=== PATIENT | female | born 1945 | race Caucasian/White ===

== ENCOUNTER 2023-02-22 11:16 | Outpatient (CLI) | payer MEDICARE, SELFPAY ==
[2023-02-22 11:41] LABS: Basophils Absolute Auto 0.1 K/mm3 (0.0-0.1); Basophils Percent Auto 0.5 % (0.2-1.2); Eosinophils Absolute Auto 0.2 K/mm3 (0-0.3); Eosinophils Percent Auto 2.1 % (0-4.4); Hematocrit 36.1 % (37.0-47.0); Hemoglobin 11.9 g/dL (12.0-15.0); Immature Granulocyte Absolute 0.03 K/mm3 (0.00-0.031); Immature Granulocyte Percent A 0.3 % (0-0.5); Lymphocytes Absolute Auto 1.52 K/mm3 (0.9-3.2); Lymphocytes Percent Auto 15.3 % (18.3-44.2); Mean Corpuscular Hemoglobin 31.3 pg (26-34); Mean Platelet Volume 9.8 fl (7.4-10.4); Monocytes Absolute Auto 0.6 K/mm3 (0.1-0.6); Monocytes Percent Auto 5.8 % (2.6-8.5); Neutrophils Absolute Auto 7.6 K/mm3 (1.3-6.7); Platelet Count Result 376 k/mm3 (150-375); Red Cell Distribution Width 13.1 % (11.5-14.5)
[2023-02-22 11:55] LABS: Alanine Aminotransferase 16 U/L (6-35); Albumin Level 4.1 g/dL (3.5-5.1); Alkaline Phosphatase 96 U/L (38-126); Anion Gap 8 mmol/L (8-16); Aspartate Amino Transferase 29 U/L (14-36); Bilirubin,Total 0.7 mg/dL (0.2-1.3); Blood Urea Nitrogen 15 mg/dL (7-17); Calcium 9.1 mg/dL (8.4-10.2); Carbon Dioxide 31 mmol/L (22-30); Chloride 105 mmol/L (98-107); Estimated Glomerular Filt Rate > 60; Glucose 106 mg/dL (65-110); Potassium 3.9 mmol/L (3.4-5.0); Sodium 144 mmol/L (137-145)
== END 2023-02-22 11:17 | disposition home or self-care (01) ==
LOC: ANHLAB 11:17
PROVIDERS: PCP Family Medicine; Visit Provider Nurse Practitioner Family
DX: N93.9 Abnormal uterine and vaginal bleeding, unspecified (principal)
CPT/HCPCS: 36415; 80053; 85025

== ENCOUNTER 2023-02-26 11:35 | Outpatient (CLI) | payer MEDICARE, SELFPAY ==
[2023-02-26 11:58] LABS: Hematocrit 36.9 % (37.0-47.0); Hemoglobin 11.6 g/dL (12.0-15.0); Mean Corpuscular HGB Conc 31.4 g/dl (32-36); Mean Corpuscular Hemoglobin 30.8 pg (26-34); Mean Corpuscular Volume 97.9 fl (80-100); Mean Platelet Volume 9.8 fl (7.4-10.4); Platelet Count Result 358 k/mm3 (150-375); Red Blood Count 3.77 M/mm3 (4.2-5.4); Red Cell Distribution Width 13.2 % (11.5-14.5); White Blood Count 7.6 K/mm3 (4.5-10.0)
[2023-02-26 13:06] LABS: Iron 52 ug/dL (37-170)
[2023-02-26 13:16] LABS: Percent Iron Saturation 17 % (20-50)
[2023-02-26 13:21] LABS: Folic Acid 4.3 ng/mL (2.76->20)
== END 2023-02-26 11:36 | disposition home or self-care (01) ==
LOC: ANHLAB 11:36
PROVIDERS: PCP Family Medicine; Visit Provider Nurse Practitioner Family
DX: N93.9 Abnormal uterine and vaginal bleeding, unspecified (principal); D64.9 Anemia, unspecified
CPT/HCPCS: 36415; 82607; 82746; 83540; 83550; 85027

== ENCOUNTER 2023-04-29 11:09 | Outpatient (CLI) | payer MEDICARE, SELFPAY ==
[2023-04-29 11:25] LABS: Hematocrit 39.3 % (37.0-47.0); Hemoglobin 12.9 g/dL (12.0-15.0)
== END 2023-04-29 11:10 | disposition home or self-care (01) ==
PROVIDERS: Student in an Organized Health Care Education/Training Program; PCP Family Medicine; Visit Provider Internal Medicine Hematology & Oncology
DX: N95.0 Postmenopausal bleeding (principal); Z01.818 Encounter for other preprocedural examination
CPT/HCPCS: 36415; 85014; 85018

== ENCOUNTER 2023-05-02 00:22 | Day surgery (SDC) | payer MEDICARE, SELFPAY ==
[2023-04-22 15:40] VITALS: BMI 25.9
--- NOTE | 2023-04-22 16:04 | PC.NURSE ---
Report to the Outpatient Waiting Room, entrance under the green pavilion located off [facility], at time ___12:00PM____ on date __05/02/23 . Planned Procedure Time: __2:00PM . Time changes happen often and if your time is changed the preop area will call you the afternoon before. - You and your visitor will be asked to self-screen and do not enter if you have any COVID symptoms. - A mask is optional within the hospital at this time. Patients may have clear liquids (water, carbonated beverages, clear teas, apple juice) until 3 hours prior to surgery with a maximum of 20 ounces. - No food from midnight until time of surgery. Take the following medications with a SIP of water the morning of surgery: TYLENOL NEEDED FOR PAIN DO NOT STOP ANY OF YOUR OTHER PRESCRIPTION MEDICATIONS PRIOR TO SURGERY ?EXCEPT THE FOLLOWING Medications to discontinue per physician ____HOLD ALL VITAMINS/SUPPLEMENTS 3 DAYS PRE0OP PER ANESTHESIA Date to take last dose 04/28/23 Please no make-up, nail taiwanese, hairspray, perfume, deodorant, or body powder the day of surgery. No jewelry (including any body piercings) or valuables the day of surgery, leave them at home. Please take a shower or bath the night before, or the morning of, surgery with an antibacterial soap. Wear comfortable, loose fitting clothing. - Jewelry must be removed prior to entering the operating room. Rings and piercings that are not removed may be cut off. - The hospital will not accept responsibility for valuables. - Please leave all valuables, including medications, at home the day of surgery. If you are going home after surgery, a licensed company tanker truck driver must drive you home. - NO public transportation without another adult if you receive anesthesia. - We recommend that an adult stay with you for 24 hours following discharge. - We also recommend that you do not drive, make important decision, drink alcoholic beverages, or take any drugs that were not prescribed by your health care provider for at least 24 hours after your discharge time. Follow any additional instructions given to you from your surgeon. If you or anyone in your household have experienced Covid symptoms in the past week, please notify your surgeon or the nurse liaison at the phone number below for possible testing. Telephone instructions given to ____PATIENT and asked if any additional questions and then verbalized understanding. Patient advised to call surgeon office or pre surgery nurse liaison [phone] if any additional questions.
--- NOTE | 2023-05-02 07:50 | PM.IMHP ---
H&P: HPI History of Present Illness Date/Time: 05/02/23 07:50 Chief Complaint: postmenopausal bleeding Narrative: 77-year-old female who presents for follow-up after emergency room visit for postmenopausal bleeding.? Patient states she 1st started experiencing menstrual like cramping.? Patient attributed to needing to have a bowel movement.? Patient states she then sat down to use the restroom and noticed bright red bleeding.? This prompted patient to present to the emergency room.? Patient was found to be anemic with a hemoglobin of 8.? Patient's bleeding was stable at that time.? CT scan was performed which showed an enlarged uterus with a possible 5 cm lesion within the endometrial cavity.? Patient states she continues to have bleeding but it is now just light spotting.? Patient does report intermittent cramping sensation as well.? Patient reports a long family history of kidney cancer and lung cancer. Review of Systems Cardiovascular: Cardiovascular: Denies chest pain, Denies leg edema, Denies palpitations, Denies dyspnea and Denies dyspnea on exertion Respiratory: Respiratory: Denies cough, Denies dyspnea and Denies dyspnea on exertion Gastrointestinal: Gastrointestinal: Denies abdominal pain, Denies constipation, Denies diarrhea, Denies nausea and Denies vomiting Genitourinary: Genitourinary: Denies hematuria, Denies urinary frequency, Denies dysuria, Denies pelvic pain, Denies urinary incontinence and Denies vaginal discharge Neurologic: Reports system reviewed and no additional complaints, except as documented Psychiatric: Psychiatric: Reports no additional psychiatric complaints Endocrine: Endocrine: Denies palpitations PMFSH Past Medical History Medical History Anxiety BMI 25.0-25.9,adult Surgical History Surgical History History of hysteroscopy D & C Family History Family History Sibling Family history of diabetes mellitus in first degree relative Family history of malignant neoplasm of breast in first degree relative Father Family history of coronary artery disease Diabetes mellitus Mother Diabetes mellitus Depression Social History Social History Smoking status: Never smoker Second hand tobacco smoke exposure: No Alcohol intake: current Substance use: never Lack of Transportation: No Lack of Food: Never True Current Housing: I Have Housing Concerned About Future Housing: No Difficulty Paying Gas/Electric Bills: No Difficulty Paying for Meds: No Currently Unemployed: No Education: High School Diploma/GED Difficulty w/ Childcare or Family Care: No Living arrangements: with family Additional living arrangements comments: AND SON WHO IS AUTISTIC Occupation/Education: retired Gender identity (if verbalized by the patient): Female Spiritual care concerns: No Meds Home Medications and Allergies Home Medications Medication Instructions Recorded Confirmed Type ipratropium bromide 21 mcg (0.03 2 spray intranasal TID #30 mL 04/08/23 04/22/23 Rx %) nasal spray acetaminophen 500 mg capsule 1,000 mg PO Q6H PRN Pain 04/22/23 04/22/23 History cyanocobalamin (vitamin B-12) 1,000 mcg PO DAILY 04/22/23 04/22/23 History 1,000 mcg tablet Allergies Allergy/AdvReac Type Severity Reaction Status Date / Time No Known Allergies Allergy Verified 04/22/23 15:35 Exam Const: General: no acute distress Eyes: EOM: EOMs intact bilaterally Neck: Neck: supple Thyroid: thyroid normal Chest: Breast/axilla inspection: normal inspection of the breasts Breast/axilla palpation: normal palpation of the breasts, normal palpation of the axillae and no axillary lymphadenopathy Resp: Effort & Inspection: normal respira
[2023-05-02] MEDS: ACETAMINOPHEN 500 MG TABLET 1000 MG PO (12:05)
[2023-05-02 13:26] VITALS: BP 161/76; PULSE 88; RESP 16; TEMP 36.8; O2SAT 98
[2023-05-02 13:30] VITALS: BMI 24.5
--- NOTE | 2023-05-02 13:33 | WPDANESEPPF ---
Anes - Initial Pre Proc Eval Procedure: Operation Date: 05/02/23 14:00 Proposed Procedures p Hysteroscopy Dilation and Curettage - Milton Bess MD Date/Time: 05/02/23 13:33 Surgeon: Milton Bess MD Pre Op Diagnosis: Post Menopausal Bleeding Patient Data Age: 77 Gender: F Height: 1.68 m Weight: 68.9 kg Last Vital Signs Temp 36.8 C 05/02/23 13:26 Pulse 88 05/02/23 13:26 Resp 16 05/02/23 13:26 BP 161/76 H 05/02/23 13:26 Pulse Ox 98 05/02/23 13:26 Allergies Allergy/AdvReac Type Severity Reaction Status Date / Time No Known Allergies Allergy Verified 05/02/23 13:17 Home Medications Medication Instructions Recorded Confirmed Type ipratropium bromide 21 mcg (0.03 2 spray intranasal TID #30 mL 04/08/23 05/02/23 Rx %) nasal spray acetaminophen 500 mg capsule 1,000 mg PO Q6H PRN Pain 04/22/23 05/02/23 History cyanocobalamin (vitamin B-12) 1,000 mcg PO DAILY 04/22/23 05/02/23 History 1,000 mcg tablet Patient hx anesthesia problems: none Family hx anesthesia problems: none Results Review: All pre-operative results and documents have been reviewed as part of the pre-operative evaluation. [facility] Past Medical History Medical History Anxiety BMI 25.0-25.9,adult Surgical History Surgical History History of hysteroscopy D & C Family History Family History Sibling Family history of diabetes mellitus in first degree relative Family history of malignant neoplasm of breast in first degree relative Father Family history of coronary artery disease Diabetes mellitus Mother Diabetes mellitus Depression Social History Social History Smoking status: Never smoker Second hand tobacco smoke exposure: No Alcohol intake: current Substance use: never Lack of Transportation: No Lack of Food: Never True Current Housing: I Have Housing Concerned About Future Housing: No Difficulty Paying Gas/Electric Bills: No Difficulty Paying for Meds: No Currently Unemployed: No Education: High School Diploma/GED Difficulty w/ Childcare or Family Care: No Living arrangements: with family Additional living arrangements comments: AND SON WHO IS AUTISTIC Occupation/Education: retired Gender identity (if verbalized by the patient): Female Spiritual care concerns: No Anes - Eval Final PreProcedure Day of Procedure 05/02/23 13:33 Patient weight: normal Heart: regular rate and rhythm Lungs: clear to auscultation Airway: Mallampati scale class II Neurological: alert and oriented Last oral intake: >/= 8 hours ASA classification: II Emergent: no Anesthetic plan: proceed Anesthesia type and monitoring: general GIVS and standard monitoring Results Review: All pre-operative results and documents have been reviewed as part of the pre-operative evaluation. Informed Consent: The patient's anesthetic plan and its attendant risks and benefits were discussed with the patient/family/POA. Questions were solicited and answers provided to the satisfaction of the patient/family/POA.
[2023-05-02] MEDS: LACTATED RINGERS 1,000 ML 30 ML IV CONT (13:44)
--- NOTE | 2023-05-02 14:01 | WPDHPUPDATE1 ---
History and Physical Update Update Date/Time: 05/02/23 14:01 History and Physical has been reviewed, including an updated exam of the patient. There are NO changes in the patient's condition. Risks, benefits, and alternatives have been discussed and questions answered. Patient agrees to proceed with procedure.
[2023-05-02 14:54] VITALS: BP 145/55; PULSE 84; RESP 16; O2SAT 100
--- NOTE | 2023-05-02 14:54 | W.PM.PROC2 ---
Procedure Note - Detailed Date of Procedure 05/02/23 Pre-op Diagnosis Post Menopausal Bleeding endometrial lesion Post-op Diagnosis Same Procedure Performed hysteroscopy dilation & curettage Surgeon Milton Bess MD Anesthesia General Indications abnormal uterine bleeding Findings large, vascular lesion originating from the anterior uterine wall. Globally thickened endometrium. Unable to visualize tubal ostia bilaterallyf Description of Procedure Lori Post presents for the above procedure. She was counseled as to the indications, risks, benefits, and alternatives to surgery, with the risks including bleeding, infection, damage to surrounding organs, VTE, and complications of anesthesia. Her verbal and written consent was obtained. PROCEDURE: The patient was taken to the OR and general anesthesia induced. She was prepped and draped in Manny stirrups with support of the back and bilateral lower extremities. I/O catheterization performed of the bladder. The above findings were noted. A single tooth tenaculum was placed on the anterior lip of the cervix. The cervix was noted to be patulous. Hysteroscopy, using a normal saline medium, was performed and showed the above findings. It was difficult to obtain a good seal at the cervix to allow for proper hysteroscopic evaluation of the entire endometrium. After several attempts to create a cervical seal, hysteroscopic portion was aborted. Sharp uterine curettage was then performed and tissue placed on Telfa. Copious amounts of tissue was expelled from the endometrial cavity. The tissue was very friable. A slow trickle of blood was noted from the cervix. 3 more passes of sharp curettage was performed to help achieve hemostasis. The tenaculum was then removed. The patient tolerated the procedure well. Sponge, lap, and needle counts were correct. The patient had SCD's on throughout the case for VTE prophylaxis. The patient was taken to the recovery room in stable condition. Estimated Blood Loss 200 Urine Output 50 Drains No Packing No Pathology Yes (endometrial curettings ) Complications No immediate complications Condition Stable Disposition PACU [facility] Billing Surgery - Charge Forward: Surgery Billing
[2023-05-02] MEDS: fentaNYL CITRATE INJ (*CRX) 100 MCG/2 ML VIAL 25 MCG IV PUSH ×2 (15:14→15:24)
[2023-05-02 15:15] VITALS: BP 172/77; PULSE 81; RESP 16; O2SAT 99
[2023-05-02 15:45] VITALS: BP 136/61; PULSE 84; RESP 14; O2SAT 99
[2023-05-02 16:15] VITALS: BP 143/60; PULSE 92; RESP 14
[2023-05-02 16:40] VITALS: BP 144/63; PULSE 90; RESP 14
== END 2023-05-02 17:04 | disposition home or self-care (01) ==
PROVIDERS: PCP Family Medicine; Visit Provider Student in an Organized Health Care Education/Training Program
PROC: 0U5B8ZZ Destruction of Endometrium, Via Natural or Artificial Opening Endoscopic (ICD-10-PCS; CPT 58563; principal; 2023-05-02 14:00)
DX: C54.1 Malignant neoplasm of endometrium (principal)
CPT/HCPCS: 58558; 36415; 85014; 85018; 88305; 88342; A9270; J2405; J2704; J3010; J7120

== ENCOUNTER 2023-09-25 12:40 | Outpatient (CLI) | payer MEDICARE, SELFPAY ==
--- NOTE | ~2023-09-25 | MMUS_ITS ---
EXAMINATION: MM diagnostic scottie BI w prabhu, US breast BI complete HISTORY: Palpable bilateral breast abnormalities. TECHNIQUE: Additional 3-D tomosynthesis images of the breasts were performed and synthetic 2-D images were generated. CAD analysis was submitted and interpreted. High resolution bilateral complete breas t ultrasound was performed. COMPARISON: No prior studies for comparison. BREAST PARENCHYMAL COMPOSITION: Dense: The breasts are heterogeneously dense, which may obscure small masses FINDINGS: MAMMOGRAPHIC FINDINGS: There is a spiculated mass in the upper outer quadrant of the right breast, middle third. There are s cattered nodular asymmetries throughout the right breast. There is a large 0.5 cm left breast mass lo cated posterior to the nipple in the area of palpable concern. There is an adjacent low density mass located more medial to the dominant mass. There is nipple inversion bilaterally. There is skin thicke sami of the left breast. There are associated punctate calcifications within the dominant left breast mass, nonspecific. ULTRASOUND: Complete bilateral US of all 4 quadrants of the breasts and retroareolar region was reviewed. Right breast: At 12:00, 4.5 cm from the nipple there is an irregular shaped hypoechoic 6 mm mass with serpiginous tail. There is marginal vascularity. At 12:00, 1 cm from the nipple there is a 4 mm cyst . At 12:00, 3 cm from the nipple, there is an irregular shaped solid mass with parallel orientation m easuring 11 x 9 x 5 mm with internal vascularity. No significant posterior features. At 4:00, 2 cm fr om the nipple, there is a slightly irregular shaped 5 mm mass without internal vascularity or posteri or features. There is parallel orientation. At 8:00, 7 cm from the nipple there is an irregular shape d hypoechoic mass with spiculated margins, likely corresponding to the area of architectural distorti on. There is mixed posterior attenuation. No internal vascularity. This measures up to 2.3 cm. At 10: 00, 5 cm from the nipple there is an oval hypoechoic mass with low level internal echoes measuring 9 mm. No internal vascularity or posterior shadowing. Left breast: At 4:00, 6 cm from the nipple there is an 11 mm cyst. At 6:00, 2 cm from the nipple ther e is an irregular shaped linear hypoechoic mass with associated marginal vascularity. At 8:00, 3 cm f rom the nipple there is a cyst. At 11:00, 4 cm from the nipple there is a large irregular shaped hypo echoic mass measuring 4.8 x 2.9 x 3 cm with mixed posterior attenuation and internal vascularity. The re is overlying skin thickening. IMPRESSION: 1. Multiple abnormal bilateral breast masses, suspicious for multifocal breast cancer. 2. Recommend biopsy of dominant masses bilaterally including area of architectural distortion in the right breast at 8:00, 7 cm from the nipple measuring up to 2.3 cm, and dominant mass in the left sandra st at 11:00, 4 cm from the nipple measuring 4.8 cm. BI-RADS category 5: Highly suspicious abnormality. Reviewed, dictated and finalized at location B. IMPRESSION: 1. Multiple abnormal bilateral breast masses, suspicious for multifocal breast cancer. 2. Recommend biopsy of dominant masses bilaterally including area of architectu ral distortion in the right breast at 8:00, 7 cm from the nipple measuring up t o 2.3 cm, and dominant mass in the left breast at 11:00, 4 cm from the nipple m easuring 4.8 cm. BI-RADS category 5: Highly suspicious abnormality.
== END 2023-09-25 12:41 | disposition home or self-care (01) ==
PROVIDERS: PCP Family Medicine; Visit Provider Student in an Organized Health Care Education/Training Program
DX: N63.0 Unspecified lump in unspecified breast (principal); N64.59 Other signs and symptoms in breast; R92.8 Other abnormal and inconclusive findings on diagnostic imaging of breast
CPT/HCPCS: 76641; 77062; 77066; G0279